=== PATIENT | female | born 2000 | race Two or more races ===

== ENCOUNTER 2024-12-15 22:43 | Emergency (ER) | payer OTHER, SELFPAY ==
[2024-12-15 23:21] VITALS: BP 122/81; PULSE 69; RESP 18; TEMP 37.3; O2SAT 100
--- NOTE | 2024-12-16 00:09 | XR_ITS ---
Examination: PA lateral chest 2 views TECHNIQUE: Upright PA lateral chest 2 views Date and time: December 16, 2024 0012 hours INDICATIONS: Right anterior chest pain beginning one week ago. FINDINGS: Normal heart size. Lungs are clear. The osseous structures are intact IMPRESSION: No active disease.
--- NOTE | 2024-12-16 00:09 | EDNOTE_ITS ---
ED General RME/HPI General Chief complaint: General Adult/Misc Complain Stated complaint: HEADACHE,DIZZY,CP Time Seen by Provider: 12/15/24 23:08 Arrival date/time: 12/15/24 22:43 RME / HPI RME / HPI narrative: 24-year-old female presents to the ED with a complaint of headache, dizziness, chills, and right anterior chest wall pain since this morning. She has had headache and the anterior chest wall pain for the past 1 week.. It is worse with deep breaths. She has had a runny nose and nasal congestion as well as sinus pressure and facial heaviness. She denies any ear pain, cough, or or sore throat. She denies fever. She has had bodyaches. She has had nausea but no vomiting, diarrhea or abdominal pain. She denies any dysuria or frequency. Tylenol and ibuprofen is not helping. LMP last month, unknown date. Related Data Previous Rx's ?Medication ?Instructions ?Recorded amoxicillin 875 mg-potassium 1 tab PO BID #20 tabs clavulanate 125 mg tablet ibuprofen 600 mg tablet 600 mg PO Q8H PRN fever or p ain 12/16/24 #20 tabs loratadine 10 mg tablet (Claritin) 10 mg PO QDAY #30 t abs 12/16/24 Allergies Allergy/AdvReac Type Severity Reaction Status Date / Time No Known Allergies Allergy Verified 12/15/24 22:44 Review of Systems Review of Systems Systems Reviewed: All systems reviewed, normal except as documented Past Medical History Social History SMOKING STATUS: Never smoker ED Exam Narrative Physical exam: A&O, afebrile and non-toxic appearing 24-year-old female, no acute distress. TMs and pharynx are without erythema. Nares are with edema and erythema. No maxillary sinus tenderness, but positive frontal sinus tenderness. Neck is supple, no adenopathy. No tenderness to the chest wall. Lung sounds are clear, RRR, Abdomen is soft, nontender, and non-distended. No CVA tenderness. Moves all extremities well. Course Course Course Narrative: COVID, influenza A/B, and rapid strep tests are all negative. XR chest, 2 view reveals: No acute process. Exam is consistent with frontal sinusitis. She was given Augmentin 875 mg p.o., Claritin 10 mg p.o., and ibuprofen 600 mg p.o. prior to discharge. Quality Measures none Orders Category Date Time Status Bedside COVID-19 Antigen Test NOW Care 12/15/24 23:12 Active Bedside Influenza A&B Antigen Test NOW Care 12/15/24 23:12 Completed XR chest 2V Stat Exams 12/16/24 00:09 Taken Strep A Rapid Stat Lab 12/16/24 00:16 Completed Vital Signs Vital signs: Vital Signs Temperature 99.1 F 12/15/24 23:21 Pulse Rate 69 12/15/24 23:21 Respiratory Rate 18 12/15/24 23:21 Blood Pressure 122/81 12/15/24 23:21 Pulse Oximetry (%) 100 12/15/24 23:21 Oxygen Delivery Method Room Air 12/15/24 23:21 Discharge Plan Plan Patient Disposition: HOME (Self Care) Discharge Disposition comment: Stable Prescriptions/Referrals Prescriptions/Med Rec: New amoxicillin-pot clavulanate 875-125 mg tablet 1 tab PO BID Qty: 20 0RF loratadine [Claritin] 10 mg tablet 10 mg PO QDAY Qty: 30 0RF ibuprofen 600 mg tablet 600 mg PO Q8H PRN (Reason: fever or pain) Qty: 20 0RF Problem List Clinical Impression: Sinusitis, acute frontal, Pleuritic chest pain Patient/Caregiver Discharge Instructions Education Materials: ED Pleurisy, ED Sinusitis (Antibiotic Treatment) Additional Instructions: [place] los antibioticos mayi lo prescrito y complete elcurso a pesar de que puede sentirse major. Misha un seguimiento con gee medico de atencion primaria en 24 a 48 horas. Regresar al departamento de emergencias por cualquier sintoma nuevo o que empeore. Print Language: Thai Stand Alone Forms: [facility] Award Info., Patient Portal Info Letter PA/CLINICAL NURSE MANAGER Supervising Physician PA/CLINICAL NURSE MANAGER Supervising Physician: Dr. Sauceda [facility] Narrative MDM hospital course: Symptoms, exam and diagnostic studies are consistent with: #1 frontal sinusitis. #2 pleuritic chest pain Patient was discharged home in stable condition. Patient/family advised to follow-up with their PCP in 24-48 hours. Encouraged to return to the ED for any new or worsening symptoms. Clinical Information Provided by patient (Through provider network manager line) Medical Records Reviewed None N/A Meds/Rx Considered, not Ordered None Describe details: N/A Labs/Rad/Tests considered, not Ordered None Describe details: N/A Chronic Illness/Social Conditions which may negatively complicate care or outcome(s)-explain: None or not applicable Add or document further as needed: N/A EKG EKG not done EKG Interpretation narrative: N/A Lab Interpretation Labs: interpreted by me Lab(s) interpretation(s): As noted above Imaging Imaging interpretation: interpreted by me Provider imaging interpretation(s): No acute process per myself and Dr. Sauceda. Medication Administration(s) As noted above Diagnosis Differential diagnosis: Vertigo, labyrinthitis, sinusitis, pneumonia, COVID, influenza Differential dx and/or dx ruled out: Pneumonia, COVID, influenza Most likely dx, and/or detailed dx discussion: Frontal sinusitis and right-sided pleuritic chest pain. Dispositon Disposition: Discharge Home Disposition comments: Patient is stable for discharge
[2024-12-16 00:58] LABS: Strep A Rapid Negative (Negative)
[2024-12-16] MEDS: IBUPROFEN TAB 600 MG TABLET PO (02:16)
[2024-12-16] MEDS: AMOXICILLIN/POT CLAV 875 TABLET 1 TAB PO (02:16)
[2024-12-16 02:27] VITALS: RESP 18
== END 2024-12-16 02:27 | disposition home or self-care (01) ==
LOC: SERX 12-16 02:48
PROVIDERS: Physician Assistant; Emergency Provider Emergency Medicine
DX: J01.10 Acute frontal sinusitis, unspecified (principal); R09.1 Pleurisy
CPT/HCPCS: 71046; 87400; 87651; 87811; 99283; A9270